=== PATIENT | male | born 1980 | race Caucasian/White ===

== ENCOUNTER 2016-11-27 15:59 | Emergency (ER) | payer OTHER ==
[~2016-11-27] VITALS: Ht 172.7 cm; Wt 113.0 kg
[2016-11-27 18:00] VITALS: BP 140/82
== END 2016-11-27 18:05 | disposition home or self-care (01) | DRG 605 ==
LOC: ED 15:59
DX: S61.051A Open bite of right thumb without damage to nail, initial encounter (principal); Z23 Encounter for immunization; W55.51XA Bitten by raccoon, initial encounter; Y93.89 Activity, other specified; Y92.009 Unspecified place in unspecified non-institutional (private) residence as the place of occurrence of the external cause